=== PATIENT | female | born 1990 | race Caucasian/White ===

== ENCOUNTER 2020-09-23 10:26 | Emergency (ER) | payer OTHER ==
[~2020-09-23] VITALS: Ht 160 cm; Wt 88.5 kg
[2020-09-23 10:33] VITALS: BP 144/70
--- NOTE | 2020-09-23 10:38 | NUR ---
Pt ambulated to restroom for UA collection.
--- NOTE | 2020-09-23 10:39 | NUR ---
30 Y/O FEMALE C/O EARLY SPOTTING X1DAY WITH 3/10 CRAMPING PAIN. PT STATES SHE HAD A + TEST ON MONDAY. PT STATES +N/V, DENIES FEVER/CHILLS. ABDOMEN IS SOFT, NON-TENDER TO PALPATION, BOWEL SOUNDS PRESENT X4 WITH LAST BM 09/22/20. LMP 07/20/20. [id number] DENIES PMH NKA
--- NOTE | 2020-09-23 10:42 | NUR ---
Pt ambulated to ER bed 7 with a steady gait.
--- NOTE | 2020-09-23 10:49 | NUR ---
Dr. Appiah at pt bedside for further evaluation.
--- NOTE | 2020-09-23 11:03 | NUR ---
utility technician at pt bedside.
[2020-09-23] MEDS ORDERED: ONDANSETRON 4 MG/2 ML VIAL IVP ONE (11:05)
[2020-09-23] MEDS ORDERED: NACL 0.9% 1,000 ML IV ONE (11:05)
--- NOTE | 2020-09-23 11:08 | NUR ---
US tech at pt bedside.
[2020-09-23 11:17] LABS: BASOPHILS # (AUTO) 0.2 K/uL (0.00-0.22); BASOPHILS % (AUTO) 2.8 % (0.0-2.0); EOSINOPHILS # (AUTO) 0.1 K/uL (0-0.4); EOSINOPHILS % (AUTO) 0.7 % (0.0-4.0); HEMATOCRIT 35.4 % (36-48); HEMOGLOBIN 11.3 g/dL (12.0-16.0); LYMPHOCYTES # (AUTO) 1.2 K/uL (2.5-16.5); LYMPHOCYTES % (AUTO) 15.3 % (20.5-51.1); MEAN CORPUSCULAR HEMOGLOBIN 22 pg (27-31); MEAN CORPUSCULAR HGB CONC 32 g/dL (33-37); MEAN CORPUSCULAR VOLUME 70.3 fL (80-94); MONOCYTES # (AUTO) 0.4 K/uL (0.8-1.0); MONOCYTES % (AUTO) 5.4 % (1.7-9.3); NEUTROPHILS # (AUTO) 6.2 K/uL (1.8-7.7); NEUTROPHILS % (AUTO) 75.8 % (42.2-75.2); PLATELET COUNT (AUTO) 316 K/uL (140-450); RED BLOOD CELL COUNT(AUTO) 5.04 MIL/uL (4.20-5.40); RED CELL DISTRIBUTION WIDTH 17.1 % (11.6-13.7); WHITE BLOOD COUNT (AUTO) 8.2 K/uL (4.8-10.8)
[2020-09-23 11:24] LABS: ANION GAP 13.3 (8-16); CARBON DIOXIDE 25.4 mmol/L (21-32); CREATININE 0.6 mg/dL (0.6-1.3); POTASSIUM 3.7 mmol/L (3.5-5.1)
[2020-09-23 11:36] LABS: BILIRUBIN,URINE NEGATIVE (NEGATIVE); BLOOD, URINE TRACE-I (NEGATIVE); COLOR,URINE YELLOW (YELLOW); LEUKOCYTE ESTERASE ,URINE NEGATIVE (NEGATIVE); NITRITE, URINE NEGATIVE (NEGATIVE); UGLUCOSE NEGATIVE (NEGATIVE)
[2020-09-23 11:42] LABS: APPEARANCE,URINE HAZYSH (CLEAR); RBC,URINE 0-5 /HPF (0-5)
[2020-09-23 11:43] LABS: WBC,URINE NONE SEEN /HPF (0-5)
[2020-09-23] MEDS ORDERED: DOXY1TCP PO (12:15)
--- NOTE | 2020-09-23 12:17 | NUR ---
Dr. Appiah at bedside for re-evaluation.
[2020-09-23 12:30] VITALS: BP 132/72
--- NOTE | 2020-09-23 12:30 | NUR ---
IV removed, catheter intact and site benign. Applied folded 4x4 gauze and tape to stop bleeding.
--- NOTE | 2020-09-23 12:30 | NUR ---
Patient discharged with v/s stable. Written and verbal after care instructions given and explained. Patient alert, oriented and verbalized understanding of instructions. Ambulatory with steady gait. All questions addressed prior to discharge. ID band removed. Patient advised to follow up with PMD. Rx of Doxylamine/Pyridoxine HCL electronically sent to [facility] in [place]. Patient educated on indication of medication including possible reaction and side effects. Opportunity to ask questions provided and answered.
== END 2020-09-23 12:30 | disposition home or self-care (01) ==
LOC: MED 10:26
DX: O46.8X1 Other antepartum hemorrhage, first trimester (principal); O21.1 Hyperemesis gravidarum with metabolic disturbance; R03.0 Elevated blood-pressure reading, without diagnosis of hypertension; Z3A.09 9 weeks gestation of pregnancy
CPT/HCPCS: 36415; 76801; 80048; 81001; 81025; 84702; 85025; 86900; 86901; 96361; 96374; 99284; J2405; J7030

== ENCOUNTER 2020-10-19 21:17 | Emergency (ER) | payer OTHER ==
[~2020-10-19] VITALS: Ht 160 cm; Wt 88.5 kg
[~2020-10-19 21:17] MED LIST: DOXY1TCP PO
[2020-10-19 21:35] VITALS: BP 153/73
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
--- NOTE | 2020-10-19 21:36 | NUR ---
ERMD AT BEDSIDE TO ASSESS PATIENT.
--- NOTE | 2020-10-19 21:48 | NUR ---
US TECH AT BEDSIDE.
[2020-10-19 21:56] LABS: APPEARANCE,URINE CLEAR (CLEAR); BILIRUBIN,URINE NEGATIVE (NEGATIVE); BLOOD, URINE NEGATIVE (NEGATIVE); COLOR,URINE YELLOW (YELLOW); LEUKOCYTE ESTERASE ,URINE TRACE (NEGATIVE); NITRITE, URINE POSITIVE (NEGATIVE); UGLUCOSE NEGATIVE (NEGATIVE)
[2020-10-19 22:08] LABS: RBC,URINE 0-5 /HPF (0-5)
[2020-10-19] MEDS ORDERED: NITR100C7 PO (22:27)
--- NOTE | 2020-10-19 22:32 | NUR ---
LABS DRAWN AND HAND GIVEN TO CHIEF CREDIT OFFICERDOROTA LEE.
[2020-10-19 22:44] LABS: BASOPHILS % (AUTO) 0.2 % (0.0-2.0); EOSINOPHILS # (AUTO) 0.3 K/uL (0-0.4); EOSINOPHILS % (AUTO) 3.6 % (0.0-4.0); HEMATOCRIT 32.7 % (36-48); HEMOGLOBIN 10.6 g/dL (12.0-16.0); LYMPHOCYTES # (AUTO) 2.2 K/uL (2.5-16.5); MEAN CORPUSCULAR HEMOGLOBIN 23 pg (27-31); MEAN CORPUSCULAR HGB CONC 33 g/dL (33-37); MEAN CORPUSCULAR VOLUME 71.9 fL (80-94); MONOCYTES # (AUTO) 0.6 K/uL (0.8-1.0); MONOCYTES % (AUTO) 7.1 % (1.7-9.3); NEUTROPHILS # (AUTO) 4.8 K/uL (1.8-7.7); NEUTROPHILS % (AUTO) 61.1 % (42.2-75.2); PLATELET COUNT (AUTO) 260 K/uL (140-450); RED BLOOD CELL COUNT(AUTO) 4.54 MIL/uL (4.20-5.40); RED CELL DISTRIBUTION WIDTH 18.7 % (11.6-13.7); WHITE BLOOD COUNT (AUTO) 7.9 K/uL (4.8-10.8)
--- NOTE | 2020-10-20 00:08 | NUR ---
Patient appears to be resting comfortably in bed. Respirations even and unlabored.
[2020-10-20] MEDS ORDERED: ACET-8386 PO (00:42)
[2020-10-20] MEDS ORDERED: ACETAMINOPHEN EXTRA STRENGTH 500 MG TAB PO ONE (01:00)
--- NOTE | 2020-10-20 01:00 | NUR ---
PATIENT STATES PAIN RETURNED TO 7/10 PAIN. ERMD MADE AWARE AND GAVE NEW OEDERS.
[2020-10-20 01:10] VITALS: BP 132/76
--- NOTE | 2020-10-20 01:10 | NUR ---
Patient discharged with v/s stable. Written and verbal after care instructions given and explained. Patient alert, oriented and verbalized understanding of instructions. Ambulatory with steady gait. All questions addressed prior to discharge. ID band removed. Patient advised to follow up with PMD. Rx of HYDROCODONE/ACETAMINOPHEN, MACROBID given. Patient educated on indication of medication including possible reaction and side effects. Opportunity to ask questions provided and answered.
== END 2020-10-20 01:10 | disposition home or self-care (01) ==
LOC: MED 21:17
DX: O26.891 Other specified pregnancy related conditions, first trimester (principal); O26.851 Spotting complicating pregnancy, first trimester; R10.30 Lower abdominal pain, unspecified; Z79.899 Other long term (current) drug therapy
CPT/HCPCS: 36415; 76801; 81001; 81025; 84702; 85025; 86900; 86901; 87086; 99284

== ENCOUNTER 2021-08-22 21:22 | Emergency (ER) | payer OTHER ==
[~2021-08-22] VITALS: Ht 160 cm; Wt 86.6 kg
[~2021-08-22 21:22] MED LIST changes: +ACET-8386 PO; +NITR100C7 PO
[2021-08-22 21:29] VITALS: BP 147/94
--- NOTE | 2021-08-22 21:37 | NUR ---
Placed bed 12.
--- NOTE | 2021-08-22 21:38 | NUR ---
Patient BIB by family from home. C/O epigastric pain x today. Patient reported, had epigastric pain since 1200 PM today with nausea, took unknown name by her family to relief pain, no relief, Denied Hx .A/O,X4, epigastric pain, pain rate 10/10, nausea, no vomitting.
--- NOTE | 2021-08-22 21:39 | NUR ---
Blood for labwork drawn from left arm per manager drive. Patient tolerated fair.
[2021-08-22 21:47] LABS: BASOPHILS % (AUTO) 0.5 % (0.0-2.0); EOSINOPHILS # (AUTO) 0.3 K/uL (0-0.4); EOSINOPHILS % (AUTO) 4.1 % (0.0-4.0); HEMATOCRIT 38.6 % (36-48); HEMOGLOBIN 13.3 g/dL (12.0-16.0); LYMPHOCYTES # (AUTO) 2.8 K/uL (2.5-16.5); LYMPHOCYTES % (AUTO) 40.8 % (20.5-51.1); MEAN CORPUSCULAR HEMOGLOBIN 29 pg (27-31); MEAN CORPUSCULAR HGB CONC 35 g/dL (33-37); MEAN CORPUSCULAR VOLUME 84.5 fL (80-94); MONOCYTES # (AUTO) 0.6 K/uL (0.8-1.0); MONOCYTES % (AUTO) 8.7 % (1.7-9.3); NEUTROPHILS # (AUTO) 3.2 K/uL (1.8-7.7); NEUTROPHILS % (AUTO) 45.9 % (42.2-75.2); PLATELET COUNT (AUTO) 267 K/uL (140-450); RED BLOOD CELL COUNT(AUTO) 4.57 MIL/uL (4.20-5.40); RED CELL DISTRIBUTION WIDTH 13.2 % (11.6-13.7); WHITE BLOOD COUNT (AUTO) 6.9 K/uL (4.8-10.8)
[2021-08-22 22:07] LABS: ALBUMIN 3.9 g/dL (3.4-5.0); ANION GAP 12.2 (8-16); CARBON DIOXIDE 27.5 mmol/L (21-32); CREATININE 0.6 mg/dL (0.6-1.3); POTASSIUM 3.7 mmol/L (3.5-5.1); TOTAL BILIRUBIN 0.2 mg/dL (0.0-1.0)
--- NOTE | 2021-08-22 22:51 | NUR ---
Dr. Joe at bedside to exam patient.
[2021-08-22] MEDS ORDERED: ONDANSETRON 4 MG/2 ML VIAL IVP ONE (23:00)
[2021-08-22] MEDS ORDERED: MORPHINE SULFATE 2 MG/ML SYR IVP ONE (23:00)
[2021-08-22] MEDS ORDERED: NACL 0.9% 1,000 ML IV SCH (23:00)
[2021-08-22] MEDS ORDERED: PANTOPRAZOLE 40 MG INJ VIAL IVP ONE (23:00)
[2021-08-22 23:07] LABS: APPEARANCE,URINE SL CLOUDY (CLEAR); BILIRUBIN,URINE NEGATIVE (NEGATIVE); BLOOD, URINE 3+ (NEGATIVE); COLOR,URINE YELLOW (YELLOW); LEUKOCYTE ESTERASE ,URINE NEGATIVE (NEGATIVE); NITRITE, URINE NEGATIVE (NEGATIVE); UGLUCOSE NEGATIVE (NEGATIVE)
[2021-08-22 23:20] LABS: RBC,URINE 0-5 /HPF (0-5)
--- NOTE | 2021-08-22 23:44 | NUR ---
Pt transferred to CT scan via [facility] .
--- NOTE | 2021-08-22 23:53 | NUR ---
Patient came back from CT scan.
--- NOTE | 2021-08-22 23:57 | NUR ---
US at bedside.
[2021-08-23] MEDS ORDERED: cephALEXin 500 MG CAP PO ONE (00:50)
--- NOTE | 2021-08-23 02:14 | NUR ---
Patient request pain medication for headache, Dr. Joe notified.
[2021-08-23] MEDS ORDERED: ACETAMINOPHEN EXTRA STRENGTH 500 MG TAB PO ONE (02:20)
[2021-08-23] MEDS ORDERED: CEPH-588 PO (02:40)
[2021-08-23] MEDS ORDERED: PANT40EC PO (02:40)
[2021-08-23 03:00] VITALS: BP 147/94
--- NOTE | 2021-08-23 03:00 | NUR ---
Patient discharged with v/s stable. Written and verbal after care instructions given and explained. Patient alert, oriented and verbalized understanding of instructions. Ambulatory with steady gait. All questions addressed prior to discharge. ID band removed. Patient advised to follow up with PMD. Rx of Keflex and Protonix given. Patient educated on indication of medication including possible reaction and side effects. Opportunity to ask questions provided and answered.
== END 2021-08-23 03:00 | disposition home or self-care (01) ==
LOC: MED 21:22
DX: K80.20 Calculus of gallbladder without cholecystitis without obstruction (principal); N83.201 Unspecified ovarian cyst, right side; N39.0 Urinary tract infection, site not specified; R51.9 Headache, unspecified; Z79.899 Other long term (current) drug therapy
CPT/HCPCS: 36415; 74176; 76705; 80053; 81001; 81025; 83690; 84484; 84703; 85025; 87086; 93005; 96361; 96374; 96375; 99285; C9113; J2270; J2405; Q0092; J7030